=== PATIENT | female | born 1945 | race Caucasian/White ===

== ENCOUNTER 2024-01-02 14:37 | Outpatient (CLI) | payer MEDICARE ==
[2024-01-02 16:10] LABS: #Basophils 0.04 10x3/uL (0.0-0.2); %Basophils 0.6 % (0.0-1.0); %Eosinophils 2.3 % (0.0-10.0); %Lymphocytes 21.6 % (21.0-51.0); %Monocytes 9.3 % (0.0-10.0); %Neutrophils 65.9 % (42.0-75.0); Hemoglobin 14.6 g/dL (12.0-16.0); Mean Corpuscular Hemoglobin 31.5 pg (27.0-31.0); Mean Corpuscular Volume 92.9 fL (78.0-98.0); Mean Platelet Volume 10.9 fL (7.4-10.4); Platelet Count 177 10x3/uL (130-400); RBC Distribution Width 13.3 % (11.5-14.5); Red Blood Cell (RBC) Count 4.63 mill/uL (4.20-5.40)
[2024-01-02 16:53] LABS: Anion Gap 15 mmol/L (10-20); BUN (Urea Nitrogen) 16 mg/dL (9.8-20.1); Calc. Creatinine Clearance 0 mL/min (70-130); Calcium 9.4 mg/dL (7.8-10.44); Carbon Dioxide 23 mmol/L (23-31); Chloride 107 mmol/L (98-107); Estimated GFR 86; Glucose 163 mg/dL (83-110); Potassium 3.8 mmol/L (3.5-5.1); Sodium 141 mmol/L (136-145)
== END 2024-01-02 14:38 | disposition home or self-care (01) ==
LOC: LABBT 14:37
PROVIDERS: ATTEND Thoracic Surgery (Cardiothoracic Vascular Surgery)
DX: Z01.818 Encounter for other preprocedural examination (principal)
CPT/HCPCS: 80048; 85025; 93005; 93010

== ENCOUNTER 2024-01-03 07:33 | Inpatient (IN) | payer MEDICARE ==
[2024-01-03] MEDS ORDERED: Heparin 5,000 UNITS/ML VIAL ONE (08:02)
[2024-01-03] MEDS ORDERED: EPINEPHrine 1 MG/ML VIAL ONE (08:03)
[2024-01-03] MEDS ORDERED: Bupivacaine PF 0.5% 30 ML VIAL ONE (08:03)
[2024-01-03] MEDS ORDERED: PROPOFOL 20 ML ONE ×2 (08:33→10:16)
[2024-01-03] MEDS ORDERED: SUGAMMADEX SODIUM 200 MG/2 ML VIAL ONE (08:33)
[2024-01-03] MEDS ORDERED: fentaNYL PF 100 MCG/2 ML SYRINGE ONE (08:33)
[2024-01-03] MEDS ORDERED: Dexamethasone 4 mg/ml Vial ONE (08:35)
[2024-01-03] MEDS ORDERED: Lidocaine 1% PF 5 ML VIAL ONE (08:35)
[2024-01-03] MEDS ORDERED: Ondansetron PF 4 MG/2 ML Vial ONE (08:35)
[2024-01-03] MEDS ORDERED: Rocuronium Bromide 10 MG/ML (10ML VIAL) ONE (08:35)
[2024-01-03] MEDS ORDERED: Phenylephrine 10 MG/ML VIAL ONE (08:38)
[2024-01-03] MEDS ORDERED: Lidocaine 4% Topical Sol 50 ML BOT ONE (08:42)
[2024-01-03] MEDS ORDERED: Heparin 10,000 UNITS/ 10 ML VIAL ONE (08:48)
[2024-01-03] MEDS ORDERED: CEFAZOLIN 2 GM VIAL ONE (08:56)
[2024-01-03] MEDS ORDERED: Sodium Chloride 0.9% 100 ML ONE (08:56)
[2024-01-03] MEDS ORDERED: GLYCOPYRROLATE/PF 0.2 MG/ML VIAL ONE (09:35)
[2024-01-03] MEDS ORDERED: Ondansetron HCl/PF 4 MG/2 ML Vial IVP PRN (10:24)
[2024-01-03] MEDS ORDERED: Promethazine HCl 25 MG/ML VIAL IM PRN (10:24)
[2024-01-03] MEDS ORDERED: Protamine Sulfate 50 MG/5 ML VIAL ONE (10:31)
[2024-01-03] MEDS ORDERED: fentaNYL 50 mcg/mL 1 mL Vial SLOW IVP PRN (11:08)
[2024-01-03] MEDS ORDERED: Insulin Regular, Human 100 UNIT/ML 10 ML VIAL SC PRN (11:08)
[2024-01-03] MEDS ORDERED: Phenylephrine 40 MG in Sodium Chloride 0.9% 250 ML 250 ML IVPB PRN (11:08)
[2024-01-03] MEDS ORDERED: Ipratropium/Albuterol 3 ML NEB NEB PRN (11:08)
[2024-01-03] MEDS ORDERED: Ondansetron PF 4 MG/2 ML Vial IVP PRN (11:08)
[2024-01-03] MEDS ORDERED: Acetaminophen 325 MG TAB PO PRN (11:08)
[2024-01-03] MEDS ORDERED: Nitroglycerin 50 MG/250 ML BOT 250 ML IVPB PRN (11:08)
[2024-01-03] MEDS ORDERED: hydrALAZINE 20 MG/ML VIAL SLOW IVP PRN (11:08)
[2024-01-03] MEDS ORDERED: traMADol HCl 50 MG TAB PO PRN (11:08)
[2024-01-03] MEDS ORDERED: Phenylephrine 40 MG/NS 250 ML 40 MG in Premix 1 BAG IVPB PRN (11:27)
[2024-01-03] MEDS: Sodium Chloride 0.9% 1,000 ML IV SCH (11:35)
[2024-01-03 13:52] VITALS: BMI 32.7
[2024-01-03] MEDS: CEFAZOLIN 2 GM in Sodium Chloride 0.9% 100 ML IVPB SCH (16:27)
[2024-01-04] MEDS: Multivit, Therapeutic 1 TAB PO SCH (07:46)
[2024-01-04] MEDS: Fish Oil 1,000 MG CAP PO SCH (07:46)
[2024-01-04] MEDS: Ezetimibe 10 MG TAB PO SCH (07:46)
[2024-01-04] MEDS: Clopidogrel Bisulfate 75 MG TAB PO SCH (07:46)
[2024-01-04] MEDS: Aspirin 81 mg Enteric Coated Tablet PO SCH (07:46)
[2024-01-04] MEDS: metFORMIN 500 MG TAB PO SCH (07:46)
[2024-01-04 08:51] VITALS: TEMP 97.9
== END 2024-01-04 10:10 | disposition home or self-care (01) | DRG 39 ==
LOC: SURG A 07:33 → CCU 11:15
PROVIDERS: ADMIT Thoracic Surgery (Cardiothoracic Vascular Surgery); ATTEND Thoracic Surgery (Cardiothoracic Vascular Surgery)
PROC: 3E033XZ Introduction of Vasopressor into Peripheral Vein, Percutaneous Approach (ICD-10-PCS; principal; 2024-01-03)
PROC: 037L3ZZ Dilation of Left Internal Carotid Artery, Percutaneous Approach (ICD-10-PCS; 2024-01-03)
DX: I65.23 Occlusion and stenosis of bilateral carotid arteries (principal); I25.10 Atherosclerotic heart disease of native coronary artery without angina pectoris; E78.2 Mixed hyperlipidemia; E78.5 Hyperlipidemia, unspecified; E11.9 Type 2 diabetes mellitus without complications; I10 Essential (primary) hypertension; Z98.890 Other specified postprocedural states; Z79.899 Other long term (current) drug therapy
CPT/HCPCS: 36416; C1725; C1769; C1876; C1884; J0171; J0665; J1100; J1644; J2371; J2405; J2704; J2720; J3490; J7030